=== PATIENT | male | born 1950 | race Caucasian/White ===

== ENCOUNTER 2019-04-13 17:55 | Inpatient (IN) | payer OTHER ==
[~2019-04-13] VITALS: Ht 177.8 cm; Wt 83.0 kg
--- NOTE | ~2019-04-13 | EKG ---
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
[2019-04-13 17:57] VITALS: BP 142/100
[2019-04-13 18:17] LABS: URINE BILIRUBIN NEGATIVE (Negative); URINE BLOOD 1+ (Negative); URINE CLARITY CLEAR; URINE COLOR YELLOW; URINE GLUCOSE-RANDOM* NEGATIVE (Negative); URINE KETONES NEGATIVE (Negative); URINE NITRITE-REFLEX NEGATIVE (Negative); URINE PROTEIN (DIPSTICK) NEGATIVE (Negative); URINE SPECIFIC GRAVITY >= 1.030 (1.005-1.035); URINE UROBILINOGEN 0.2 E.U./dl (0.2-1.0)
[2019-04-13 18:19] LABS: URINE LEUKOCYTES-REFLEX 1+ (Negative)
[2019-04-13 18:35] LABS: SQUAMOUS 4-10 Moderate /LPF (0-3)
[2019-04-13 18:36] LABS: CASTS None Seen /LPF (None Seen); MUCUS 0-3 Light strn/LPF (None Seen); URINE RBC 3-10 Few /HPF (0-2)
[2019-04-13 18:37] LABS: CRYSTALS None Seen /LPF (None Seen)
[2019-04-13] MEDS ORDERED: DEPAKOTE ER500 M1 PO (18:41)
[2019-04-13] MEDS ORDERED: ALPRAZOLAM XR3 MG PO (18:42)
[2019-04-13] MEDS ORDERED: DEXAMETHASONE1 MG PO (18:43)
[2019-04-13] MEDS ORDERED: TAMSULOSIN HCL0.4 MG PO (18:43)
[2019-04-13] MEDS ORDERED: ESCITALOPRA5 MG/5 ML PO (18:44)
[2019-04-13] MEDS ORDERED: PROSCAR 5MG TABL5 M1 PO (18:45)
[2019-04-13] MEDS ORDERED: LITE COAT ASPI325 MG PO (18:46)
[2019-04-13 19:23] LABS: AMP/METHAMP Negative (Negative); BARBITURATES Negative (Negative); BENZODIAZEPINES Negative (Negative); COCAINE Negative (Negative); METHADONE Negative (Negative); OPIATES POSITIVE (Negative); PCP Negative (Negative)
[2019-04-13 20:12] LABS: HEMATOCRIT 49.8 % (42.0-52.0); HEMOGLOBIN 16.8 gm/dL (14.0-18.0); MCH 32.2 pg (26.0-34.0); MCHC 33.7 g/dL (28.0-37.0); MCV 95.6 fL (80.0-100.0); PLATELET COUNT 142 thou/uL (150-400); RBC 5.22 mil/uL (4.50-6.00); RDW 13.1 % (10.5-14.5); WBC 9.9 thou/uL (4.0-11.0)
[2019-04-13 20:21] LABS: CALCIUM 8.8 mg/dL (8.5-10.1); CREATININE 1.1 mg/dL (0.7-1.3); POTASSIUM 3.8 mmol/L (3.5-5.1)
[2019-04-13 20:26] LABS: ALBUMIN 3.5 g/dL (3.4-5.0); TOTAL BILIRUBIN 0.7 mg/dL (<0.1-1.0); TOTAL PROTEIN 6.4 g/dL (6.4-8.2)
[2019-04-13 20:35] LABS: ATYPICAL LYMPHS 6 %; PLATELET ESTIMATE SLIGHTLY DECREASED
[2019-04-13 20:36] LABS: LARGE PLATELETS OCCASIONAL
[2019-04-13 20:51] LABS: SALICYLATE < 2.8 mg/dL (2.8-20.0); TROPONIN-I <0.06 ng/mL (<0.06)
[2019-04-13 22:00] VITALS: BP 163/78
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
--- NOTE | 2019-04-14 07:30 | NUR ---
Assumed care of patient this am. Patient sitting in his room. Patient has intermittent bursts of explicit language when in his room. Patient denies pain. Patient states that he is anxious. Patients affect soft. Patient ambulates with out assistance. Patients assessment shows clear breath sounds, active bowel sounds, and s1 s2 heard with auscultation.
[2019-04-14 08:00] VITALS: BP 131/84
[2019-04-14 09:22] VITALS: BP 131/84
--- NOTE | 2019-04-14 11:00 | NUR ---
Patient states that his bladder is full and that he needs a catheter. Patient states that he is having extreme pain in his bladder. Dr. Bell advised RN to put in a permanent duarte catheter. Patient given 10mg of Geodon to help with the anxiety and intermittent outbursts of foul language.
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
--- NOTE | 2019-04-14 14:00 | NUR ---
Patient had cuday catheter inserted into his bladder by RN. Patient had approximatly 1200mls out after insertion. Patient very calm and content and denies any pain at this time.
[2019-04-14 15:04] LABS: FOLIC ACID 16.1 ng/mL (8.6-58.9); TSH 3.101 uIU/mL (0.358-3.740)
[2019-04-14 20:24] VITALS: BP 128/75
--- NOTE | 2019-04-14 22:55 | NUR ---
ASSUMED CARE ON 03/14/20 @ 19:15, IN BED, AWAKENED TO VOICE AND SPOKE CALMLY AND CONVERSATIONALY WITH OFFGOING DAY NURSE AND ONCOMMING NIGHT NURSE. DENIES NEED, DENIES PAIN. A&O X 4, CALM, REQUESTED TO KNOW THE TIME,AND ASKED IF TODAY IS THE , I ASSURED HIM IT WAS AND HE ASKED WHAT THE DAY IS, I REPLIED FRIDAY. HE WAS ABLE TO GIVE HIS FULL NAME, BIRTHDAY, PRESIDENT, AND THE HOSPITAL NAME. ASKED FOR A SNACK AND PROVIDED ONE, HE ATE 100 OF SNACK AND SAID HOW GOOD IT TASTED. ASKED NAMES OF MEDS PROVIDED, AND WHEN TOLD NAMES AND USE, TOOK MEDS INCLUDING NEW ORDER FOR TRAZADONE 75MG. BETANCOURT CATHETER DRAINING YELLOW URINE TO GRAVITY. EMPTIED 200 MG @ 22:45. EYES CLOSED AND RESPIRATIONS EVEN AND UNLABORED AT THIS WRITING.
[2019-04-15 02:33] VITALS: BP 128/75
--- NOTE | 2019-04-15 05:47 | NUR ---
SLEPT 6.2 HOURS
[2019-04-15 09:18] VITALS: BP 155/86
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
[2019-04-15 11:22] VITALS: BP 155/86
--- NOTE | 2019-04-15 11:26 | NUR ---
aSSUMED AT 0700. Patient was resting in bed this mmrning calm but irritable when asked him questions. Mood swings. "I want to teodoro my doctor" he said when asked about his morning. Took medicaitons, and breakfast with no problem. participated briefly in the group therapy.Barajas dependent, clean, and clear urine. visited and brought him at the nurses desk, very irritable, shouting, and shouting about suing the hospital because we took away his flomax that he has taken for so many years. Nurse cafeteria manager talked with the . Will continue to monitor.
--- NOTE | 2019-04-15 13:21 | NUR ---
Late entry 11:30 I came on to the unit. Brando was upset. He was pounding his fist on the 3/4 door to the nursing station. He was saying that we took his medication away from him and he is in need of his medication. His was with him. A staff member printed out a list of medications for her. The nurse reviewed the medications with her. She stated that we did continue his flomx. We discussed the duarte cath. She verbalized understanding. The nurse gave the patient a prn medication for agitation.
--- NOTE | 2019-04-15 15:18 | NUR ---
Pt's Joe approached DIANA and said she has decided that she will take on the responsibilty of fulfilling the DPOA responsibilities. DIANA provided this update to the psych doctor. SW team will continue to follow pt during his stay on this unit.
--- NOTE | 2019-04-15 17:13 | EKG ---
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
--- NOTE | 2019-04-15 17:31 | NUR ---
1136: Patient went to the room and the physician talked with him. He calmed down. Nurse offered PRN medication but he refused. There has been no other episode of agitation or irritablity. 1520: Patient took shower. 1700: Had a good appetite at dinner time. Will continue with the plan of care.
[2019-04-15 19:42] VITALS: BP 154/92
--- NOTE | 2019-04-15 23:40 | NUR ---
Care assumed of patient at 1915: Patient lying in bed at start of shift. Patient awake and alert. Patient confused and forgetful this evening. Patient alert to person and place but disoriented on current time. Patient asking the time several times throughout the evening. Patient restless, speaking to himself, cursing several words over and over. Patient states that he has to have his cell phone tomorrow for a conference call and becomes agitated when talking about this. Patient had difficulty using the cordless phone this evening to call his . Patient was having difficulty with number recognition to dial the phone number. Denies SI/HI/AH/VH. No delusional or paranoia behaviors observed. No physical aggression shown. Patient verbally yelling and irritable at times. Labile mood. Patient was provided PRN Trazodone to assist with insomnia. Patient was able to fall asleep at a reasonable hour and has been able to rest quietly. Catheter in place to dependent drainage with no issue to report.
[2019-04-16 07:25] VITALS: BP 119/72
[2019-04-16 08:30] VITALS: BP 119/72
--- NOTE | 2019-04-16 09:29 | NUR ---
PT SEEMS TO KEEP TO HIMSELF THIS AM. PT IS PLEASANT WITH STAFF. PT UP AD WENDI WITH BETANCOURT TO DD, COLOR OF URINE IS YELLOW. PT DENIES ANY PAIN AT THIS TIME. PT SITTING AT TABLE AND TAPPING FOOT. PT TOOK MEDS WITHOUT ANY ISSUES.
--- NOTE | 2019-04-16 14:31 | NUR ---
PT LYING IN BED AT THIS TIME. NO COMPLAINTS OR BEHAVIORS AT THIS TIME.
--- NOTE | 2019-04-16 18:15 | NUR ---
DR. NUGENT TALKED WITH PT ABOUT DR. MEYER COMING TO SEE HIM. PT GOT UPSET WITH AND RAISING HIS VOICE. DR. Robertson HAD TO LEAVE ROOM. PT WANTED TO PAY DR. MEYER EXTRA MONEY TO SEE HIM.
[2019-04-16 19:56] VITALS: BP 125/64
--- NOTE | 2019-04-16 22:43 | NUR ---
Care assumed of patient at 1915: Patient in his room at start of shift. Patient approached the nurses station requesting the phone. Assisted patient in calling his . Patient then approached this nurse while speaking with his demanding that this nurse tell his that this hospital serves "green garzon sandwiches". This nurse located self to a private area to speak with . stating that patient has multiple complaints and she is not sure which ones are accurate and which are false. She states that the patient demands she pick him up tomorrow because he is being discharged. Education provided to regarding the dementia disease process and Dr. Padgett will be able to complete psych testing early in the week. 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 Overall, is simply worried about the cognitive changes and manipulative behaviors that she is hearing from him. grateful for education provided over the phone. Patient pacing about his room after the phone call. Urine in the catheter bag was yellow in color. Arina/reddened urine observed in the tubing. Patient had pulled the stat lock clip off of his leg and was pulling on the catheter tubing. Education provided on importance of leaving clip in place to avoid pulling and trauma to his penis and bladder. New clip applied. Education also provided to ensure he leaves duarte bag lower than his bladder. Patient states he knows all of this but "just forgot". Catheter care provided. Patient then asked if this nurse was able to convince his that the hospital serves "green garzon sandwiches". Patient educated that the hospital serves green beans and bread but they are never served as a sandwich. Patient rolled his eyes and mumbled some words in a sarcastic manner. Denies pain or discomfort. Denies SI/HI/AH/VH. Patient labile and irritable. Alert to person and place. Disoriented to time and situation. No physical aggression shown. Took HS medication whole without difficulty. Education provided with each medication provided. Ate 100% HS snack. Patient did request PRN Trazodone to help him sleep. This was provided. Patient resting quietly in bed at this time.
--- NOTE | 2019-04-17 07:30 | NUR ---
Assumed care of patient this am. Patient resting in bed. Patient in good spirits. Patient denies pain. Patient ambulatory. Patient has a duarte with a leg bag, duarte is patent. Patient takes medications whole with thin fluids. Patients assessment shows clear breath sounds, active bowel sounds, and s1 s2 heard with auscultation.
[2019-04-17 08:00] VITALS: BP 120/75
[2019-04-17 08:24] VITALS: BP 120/75
[2019-04-17 19:20] VITALS: BP 115/65
--- NOTE | 2019-04-17 20:06 | NUR ---
ASSUMED CARE ON 04/17/19 @ 19:15. IN BED IN ROOM AT THE START OF SHIFT. COOPERATED WITH ASSESSMENT, HRRR S1S2 ASUSCULTATED. LUNGS CTA ALL SOLORIO, ABD N X 4 Q. DENIES PAIN. ORIENTED X [address] TIME [address]. CALM AND COOPERATEIVE WITH CARE. DENIES SI AND HI, DENIES AH AND VH. WILL CONTINUE TO MONITOR Q 12 MINUTES FOR PATIENT SAFETY. BED IN LOW POSITION, AMBULATES INDEPENDENTLY, BRP, CONTINENT WITH A BETANCOURT LEG BAG RUNNING YELLOW URINE TO GRAVITY AT THIS TIME.
[2019-04-18 00:38] VITALS: BP 115/65
[2019-04-18 01:03] VITALS: BP 115/65
--- NOTE | 2019-04-18 01:29 | NUR ---
TOOK HS MEDS WHOLE WITH WATER. CHANGED LEG BAG TO BETANCOURT, DRAINING CLEAR YELLOW URINE TO GRAVITY. CALM AND COOPERATIVE WITH CARE. SPOKE ABOUT HIS WORK BEFORE RETIRING. BED IN LOW POSITION, WILL CONITNUE TO MONITOR Q 12 MINUTES FOR PATIENT SAFETY.
--- NOTE | 2019-04-18 06:15 | NUR ---
SLEPT WELL FOR A TOTAL OF 8 HOURS SLEEP.
[2019-04-18 07:47] VITALS: BP 125/70
--- NOTE | 2019-04-18 08:00 | NUR ---
Assumed care of patient this am. Patient up in the dining room. Patient in good spirits. Patient calm, content, and pleasant. Patient denies pain. Patient takes medications whole with thin fluids. Patients affect soft and relaxed. Patient has a duarte catheter in place. Patients assessment shows clear breath sounds, active bowel sounds, and s1 s2 heard with auscultation.
[2019-04-18 08:30] VITALS: BP 115/65
[2019-04-18 19:33] VITALS: BP 120/71
--- NOTE | 2019-04-19 03:08 | NUR ---
Assumed care of pt @ 1900. Pt calm et cooperative this shift. Pt took meds whole without difficulty. Barajas catheter attached et draining clear, yellow urine via dependent drainage. VSWNL. No behaviors noted this shift. Pt currently resting in bed with eyes closed. Will continue to monitor per protocol.
--- NOTE | 2019-04-19 03:22 | NUR ---
PT AMBULATING IN HALLWAYS INDEPENDENTLY AND IS TOLERATING WELL. BETANCOURT CATHETER INTACT. DENIES PAIN. RESTING COMFORTABLY. REQUESTED TO CALL AT 0100--DENIED. FREQUENT OBSERVATION.
[2019-04-19 08:10] VITALS: BP 122/78
--- NOTE | 2019-04-19 11:32 | NUR ---
DIANA rescheduled pt's family meeting for 04/20 @1030 am per psych doctor request; pt's Joe agreed to the time. Pt's daughter Balwinder would like to attend via phone. SW team will continue to follow pt during his stay on this unit.
--- NOTE | 2019-04-19 17:51 | NUR ---
DYSPHORIC MOOD-IRRITABLE AND ABRUPT IN INTERACTIONS WITH NURSING STAFF WILL APPROACH NURSES STATION AND WITH REQUESTS AND DOES NOT TOLERATE DELAY IN REQUESTS INSISTING THEY IMMEDIATLY BE ACTED UPON. COMES OUT FOR MEALS AND DID ATTEND PM GROUP OTHERWISE STRUCTURES FREE TIME IN BED NAPPING. GAIT STEADY WITHOUT ASSSITVE DEVICES. BETANCOURT CATHETOR PATENT DRAINING CLEAR YELLOW URINE. ORIENTED TO PERSON/PLACE-UNABLE TO ID DATE
[2019-04-19 19:38] VITALS: BP 137/83
--- NOTE | 2019-04-19 20:06 | NUR ---
ASSUMED CARE ON 04/19/19 @ 19:15, IN BED WITH THE LIGHTS ON, AWAKE ALERT AND ORIENTED X3. DENIES PAIN. COOPERATED WITH ASSESSMENT, HRRR, S1S2 NOTED, ABD N X 4Q. REPORTS HAS NOT HAD A BM TODAY, BUT MAY TRY SOON. DENIES PAIN AT THIS TIME. WILL CONTINUE TO MONITOR Q 12 MINTUES FOR PATIENT SAFETY.
[2019-04-20 04:19] VITALS: BP 137/83
--- NOTE | 2019-04-20 07:30 | NUR ---
Assumed care of patient this am. Patient resting, in good spirits. Patient takes medications whole with thin fluids. Patient ambulates with out assistance. Patient denies pain. Patients assessment shows clear breath sounds, active bowel sounds and s1 s2 heard with auscultation. Patient has a duarte catheter in. Patient has a family meeting scheduled for today.
[2019-04-20 07:49] VITALS: BP 127/62
[2019-04-20 08:00] VITALS: BP 127/62
--- NOTE | 2019-04-20 12:41 | NUR ---
SW and psych doctor attended a meeting with pt's Joe, daughter Dorene, and daughter Balwinder via phone. Pt's neuropsych report was discussed, as well as placement vs. home discharge. The psych doctor and SW recommend placement due to pt's aggressive outbursts towards his and level of care needed. Joe said she may not be ready for that and fears that pt will decline drastically if placed in placement. SW noticed pt's daughter Dorene was upset and offered her services to her as well. Pt was brought in after the meeting and the psych doctor discussed his results with him and also placement vs. home discharge. Pt said he would like to go home. Joe said she will let SW know her decision by this evening. SW provided Joe a listing of NH facilities in her area that accept private pay. The psych doctor said discharge needs to occur by Sunday 04/23 if pt is discharging home. SW team will continue to follow pt during his stay on this unit.
--- NOTE | 2019-04-20 13:15 | NUR ---
Date of Admission: 04/13/19 Date of Activity Therapy Assessment: 04/16/19 Activity Goal: Increased anger management and relaxation techniques Initial Goal: 2 Group activities/day Weekly progress towards goal: On track Group participation level: Moderate Behaviors observed: Patient shows improved impulse control. At times, pt continues to speak under his breath during social groups. No further behaviors noted. Plan: No change towards goal
--- NOTE | 2019-04-20 19:58 | NUR ---
ASSUMED CARE ON 04/20/19 @ 19:15, IN ROOM IN BED. A&OX3-4. DENIES SI, HI, A/V HALLUCINATIONS. HRRR, S1S2 NOTED, LUNGS CLR IN UPPER SOLORIO, AND DIMINISHED IN LOWER SOLORIO. ABD SOUNDS NORMOACTIVE, REPORTS HAD A BM YESTERDAY. DENIES PAIN. MOVING INTO THE DAY ROOM AT THIS WRITING FOR SNACKS.
[2019-04-20 20:19] VITALS: BP 127/77
--- NOTE | 2019-04-20 22:46 | NUR ---
TOOK HS MEDS WHOLE WITH WATER. ASKED TO MAKE A PHONE CALL @ 22:30, WHEN STAFF EXPLAINED THAT NO CALLS CAN BE MADE THIS LATE AT NIGHT, HE CALMLY RETURNED TO HIS ROOM. BED IN LOW POSITION, WILL CONTINUE TO MONITOR Q 12 MINUTES FOR PATIENT SAFETY.
[2019-04-20 22:50] VITALS: BP 127/77
--- NOTE | 2019-04-21 06:38 | NUR ---
PATIENT AWAKE AND REQUESTED MEDICATION TO HELP WITH AGITATION AND INSOMNIA. PROVIDED OLANZAPINE 5MG PO AND TYLENOL 650 MG PO ALSO PROVIDED ORANGE JUICE AND GRAHM CRACKERS WITH PEANUT BUTTER SO MEDICATION WOULD NOT BE ON AN EMPTY STOMACH. RETURNED TO BED AND SLEPT. WOKE UP @ 0600 AND CHANGED HIS BETANCOURT BAG TO THE LEG BAG. TOTAL OF 825 OUTPUT OF JAMAL URINE DRAINING TO GRAVITY. PATIENT RETURNED TO BED AND IS RESTING AT THIS WRITING.
[2019-04-21 07:40] VITALS: BP 145/79
[2019-04-21 10:37] VITALS: BP 145/79
--- NOTE | 2019-04-21 10:42 | NUR ---
0648 RESUMMED CARE FROM OVERNIGHT SHIFT, PATIENT QUIET THIS MORNING ATE BREAKFAST TOOK MEDICATION WITHOUT INCIDENCE. PATIENT WENT BACK TO ROOM TO LIE DOWN, DID GET UP FOR GROUP. PATIET QUIET AND COOPERATIVE WILL COTINUE TO MONITOR PATIENT FOR BEHAVIORS AND SAFETY.
--- NOTE | 2019-04-21 14:23 | NUR ---
Dr Diaz called pt's spouse and she would like pt home with HH on Friday. She will pick him up at 1pm. She stated she was working on deciding which agency she will use.
[2019-04-21 19:39] VITALS: BP 134/74
[2019-04-21 21:39] VITALS: BP 134/74
--- NOTE | 2019-04-21 22:06 | NUR ---
CHANGED PATIENT'S URINE CATHETER OVER FROM LEG BAG TO BETANCOURT. ASSISTED PATIENT IN CHANGING INTO CLEAN GOWN AND SCRUB PANTS. PATIENT IS A/OX3-4. PATIENT OFF BALANCE WHEN STANDING TO CHANGE CLOTHES. PATIENT DENIES PAIN. HE TOOK HIS MEDS WHOLE. PATIENT COOPERATIVE AND CALM. VSS. BED IN LOW POSITION AND ALARM ON FOR SAFETY. WILL CONTINUE TO MONITOR.
--- NOTE | 2019-04-22 01:04 | NUR ---
PATIENT GOT UP AND HAS WALKED OUT TO THE DINING ROOM. HE IS SITTING AT A TABLE. HE IS UNABLE TO SLEEP AT THIS TIME. HE STATES HE WILL TRY AND GO BACK TO BED IN A BIT. WILL CONTINUE TO MONITOR.
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
--- NOTE | 2019-04-22 06:25 | NUR ---
BETANCOURT CATHETER OUT PUT AT 425CC AT 0600. PT SLEEPING COMFORTABLY. DID NOT AWAKEN WHEN THIS NURSE WAS EMPTYING CATHETER. BED IN LOW POSITION. CONTINUING TO MONITOR.
[2019-04-22 07:48] VITALS: BP 139/86
--- NOTE | 2019-04-22 12:21 | NUR ---
0730 Up ambulating in halls without s/o distress. Calm and cooperative. Denies pain, SI/HI. Breath sounds clear t/o, bilaterally equal. Reg HR auscultated. Color pink with brisk capillary refill and palpable peripheral pulses. Port palpated per R upper chest. Clear yellow urine per duarte, adequate amounts. Active bowel sounds over soft, rounded abdomen. 1230 here visiting. Verbalizing frustration when she left stating that he wanted to kiss her good bye. No s/o distress. Eating lunch and speaking with Dr. Diaz.
[2019-04-22 19:31] VITALS: BP 144/75
[2019-04-22 21:30] VITALS: BP 144/75
--- NOTE | 2019-04-23 03:11 | NUR ---
PATIENT HAD HIS BETANCOURT CATHETER REMOVED AT 1530 TODAY. AT 2009 HE VOIDED FOR THE FIRST TIME ON HIS OWN SINCE IT HAD BEEN REMOVED. HE VOIDED 325CC OF URINE. HE HAS SINCE VOIDED 2 MORE TIMES WITH TOTAL OUTPUT OF 750CC. PATIENT DENIES ANY BURNING, PRESSURE, OR PAIN ON URINATION. PATIENT HAS BEEN A/0X3. HE IS FORGETFUL. HE HAS BEEN READING BOOKS IN BED AND DID GET UP AND SIT IN DINING ROOM AROUND 0150 WHEN HE COULDN'T SLEEP. PATIENT HAD TRAZADONE WITH HS MEDS AND IS REFUSING TO TAKE ANYTHING ELSE FOR SLEEP TONIGHT. HE IS EXCITED TO BE D/Cing TODAY TO HOME WITH HOME HEALTH AT 1300. HE STATES HE THINKS THIS IS GOING TO FIX ALL OF HIS PROBLEMS. HE DENIES SI/HI. HE DENIES PAIN. VSS AND PHYSICAL ASSESSMENT WNL. PATIENT HAS BEEN CALM AND COOPERATIVE TONIGHT. CURRENTLY HE IS IN BED AND APPEARS TO BE LIGHTLY SLEEPING. BED IN LOW POSITION. WILL CONTINUE TO MONITOR.
[2019-04-23 09:00] VITALS: BP 145/91
[2019-04-23] MEDS ORDERED: FLOMAX0.4 MG PO (09:11)
[2019-04-23] MEDS ORDERED: DEPAKOTE ER250 MG PO (09:12)
[2019-04-23] MEDS ORDERED: DIVALPROEX SOD500 M1 PO (09:12)
[2019-04-23] MEDS ORDERED: ZYPREXA 5 MG TAB5 M1 PO (09:13)
[2019-04-23] MEDS ORDERED: B-12500 MCG PO (09:14)
--- NOTE | 2019-04-23 10:55 | NUR ---
PATIENT AMBULATES AROUND UNIT STEADILY. REQUESTED SHAVE AND ASSISTED BY STAFF. ATE 75 PERCENT OF BREAKFAST. COMPLIANT WITH MORNING MEDICATIONS. AFFECT FLAT AND MOOD CALM AND AGREEABLE. NO AGITATION OR AGGRESSIVE BEHAVIOR NOTED.
[2019-04-23 12:19] VITALS: BP 145/91
--- NOTE | 2019-04-23 14:27 | NUR ---
PATIENT TRANSPORTED HOME BY AND [id number] AT 1405 THIS AFTERNOON. DISCUSSED SETTING UP OUTPATIENT WITH PSYCHE DOCTOR - HOME HEALTH ALREADY CONSULTED BY FAMILY. PATIENT HAD ALL HIS BELONGINGS SENT WITH HIM AND ALL PAPERWORK AND DOCUMENTATION REVIEWED WITH AND SIGNED. PATIENT CALM AND AGREEABLE AND ESCORTED OUT OF BUILDING BY STAFF. PRESCRIPTIONS ORDERED BY DR. HERBERT ALSO SENT WITH PATIENT WITH COPIES OF HOSPITAL DOCUMENTATION.
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
== END 2019-04-23 14:31 | disposition home health service (06) | DRG 884 ==
LOC: ER 17:55 → SBH 20:56 → EROBS 20:56 → SBH 21:37
PROVIDERS: Emergency Medicine; Physician Assistant; ADMIT Psychiatry & Neurology Psychiatry
DX: F01.51 Vascular dementia, unspecified severity, with behavioral disturbance (principal); N39.0 Urinary tract infection, site not specified; F63.9 Impulse disorder, unspecified; F07.0 Personality change due to known physiological condition; F32.9 Major depressive disorder, single episode, unspecified; F41.9 Anxiety disorder, unspecified; F60.3 Borderline personality disorder; E86.0 Dehydration; N40.1 Benign prostatic hyperplasia with lower urinary tract symptoms; R33.8 Other retention of urine; Z79.899 Other long term (current) drug therapy; Z79.82 Long term (current) use of aspirin; Z98.890 Other specified postprocedural states; Z85.841 Personal history of malignant neoplasm of brain
CPT/HCPCS: 10880